=== PATIENT | male | born 1980 | race Caucasian/White ===

== ENCOUNTER 2016-07-15 13:12 | Emergency (ER) | payer OTHER ==
[2016-07-15 14:49] LABS: BASOPHIL % 0.5 % (0-2); PLATELET COUNT 324 x10^3mcL (130-400)
[2016-07-15 14:52] LABS: RED CELL DISTRIBUTION WIDTH 14.7 % (11.5-14.5)
[2016-07-15 15:01] LABS: CALCIUM 10.1 mg/dL (8.5-10.1); CARBON DIOXIDE 30.4 mmol/L (21-32); CHLORIDE SERUM 105 mmol/L (98-107); CREATININE SERUM 1.2 mg/dL (0.7-1.3); GFR1 > 60 mL/min; GLUCOSE SERUM 116 mg/dL (74-106); POTASSIUM SERUM 4.4 mmol/L (3.5-5.1); SODIUM SERUM 145 mmol/L (136-145)
[2016-07-15 16:08] LABS: AMPHETAMINE QUAL UR POSITIVE (NEG <=1000)
[2016-07-15 16:57] VITALS: BP 130/73
== END 2016-07-15 16:57 | disposition home or self-care (01) ==
LOC: ED 13:12
PROVIDERS: Emergency Medicine
DX: R11.10 Vomiting, unspecified (principal)
CPT/HCPCS: 80307; J1630; J7030